=== PATIENT | female | born 1955 | race Caucasian/White ===

== ENCOUNTER 2023-08-17 07:45 | Inpatient (IN) | payer MEDICARE ==
[~2023-08-17] VITALS: Ht 152.4 cm; Wt 84.2 kg
[2023-08-17] VITALS (23 sets, daily range): BP systolic 83–129; BP diastolic 48–91
[2023-08-17 08:28] LABS: BASE EXCESS, BLOOD GAS 2.9 mmol/L (-2-2); HCO3, BLOOD GAS 28.2 mmol/L (22-26); O2 SATURATION, BLOOD GAS 94.4 % (95.0-100.0); PCO2, BLOOD GAS 43.6 mmHg (35-45); PH, BLOOD GAS 7.42 (7.35-7.45); PO2, BLOOD GAS 65 mmHg (80-100); TOTAL CO2, BLOOD GAS 29.6
[2023-08-17 08:29] LABS: OXYGEN RECEIVED, BLOOD GAS RA
[2023-08-17 08:38] LABS: EOSINOPHILS 1.1 % (0-6); HEMATOCRIT 44.9 % (35.0-50.0); LYMPHOCYTES 12.6 % (24-44); MCH 32.6 (27-36); MCHC 33.5 g/dl (30-36); MCV 97.3 fl (81-99); MONOCYTES 9.8 % (0-12); NEUTROPHILS 75.5 % (39-80); PLATELET COUNT 238 K/uL (140-440); RBC 4.61 M/ul (4.3-5.7); RDW 15.7 (10.5-15.0)
[2023-08-17 09:08] LABS: INFLUENZA B NAA NEGATIVE (NEGATIVE); RESPIRATORY SYNCYTIAL VIR NAA NEGATIVE (NEGATIVE)
[2023-08-17 09:25] LABS: ALBUMIN 2.2 g/dL (3.4-5.0); ALBUMIN/GLOBULIN RATIO 0.47 (1.1-2.4); ANION GAP 5.6 (7-21); BILIRUBIN, TOTAL 1.2 ng/dL (0.2-1.0); BUN/CREATININE RATIO 11.86 (6.0-28.6); CREATININE, SERUM 0.59 mg/dL (0.55-1.02); MAGNESIUM 1.7 mg/dL (1.8-2.4); POTASSIUM 3.6 mmol/L (3.5-5.1); PROTEIN, TOTAL 6.9 g/dL (6.4-8.2)
[2023-08-17 12:33] LABS: INR 1.23 (0.80-1.30)
--- NOTE | 2023-08-17 14:15 | NUR ---
THIS RN AND ALEXANDRU RN DOWN TO GET PATIENT FROM ED AND TRANSPORT PATIENT TO ROOM 127.
--- NOTE | 2023-08-17 14:35 | NUR ---
PATIENT IN ROOM 127. PATIENT ABLE TO STAND AND TRANSFER TO BED. PATIENT TOLERATED WELL. NO SKIN ISSUES NOTED. PATIENT HAS BLE WITH RIGHT WORSE THAN LEFT. PATIENT HAS CLEAN ATTENDS ON AND PUREWICK IN PLACE. PATIENT ON 2L NC. PATIENT RR- 24-30. PATIENT STATES "MY HARD BREATHING IS BETTER THAN BEFORE". PATIENT ABD VERY DISTENDED AND TIGHT. PATIENT REPORTS HER IS AT A CARE FACILITY AND HER DAUGHTER ENRICO IS HER DECISION MAKER AT THIS TIME. PATIENT ARRIVED WITH POLST FORM ON CHART. PATIENT HAS CELL PHONE AT THE BEDSIDE. ORIENTED TO ROOM AND CALL LIGHT. PATIENT ON 5MLS/HR CARDIZEM GTT. NO OTHER NEEDS AT THIS TIME.
--- NOTE | 2023-08-17 15:07 | NUR ---
MED REC COMPLETE
--- NOTE | 2023-08-17 16:31 | NUR ---
PATIENT ALERT AND ORIENTED, SITTING UP IN BED. DAUGHTERS IN ROOM AT THIS TIME. PATIENT STATES SHE LIVES IN A HOME, ALONE. RECENTLY HAS PLACED SPOUSE INTO A CARE HOME. PATIENT STATES SHE HAS NO STEPS INTO THE HOME. NO LONGER DRIVES. FRIENDS, FAMILY AND TAXI ARE UTILIZED FOR TRANSPORTATION. STATES SHE HAS NO DME THAT SHE USES, HOWEVER, HAS A NEBULIZER AND WALKER AVAILABLE IF NEEDED. STATES FINANCIALLY SHE IS DOING OK WITH FOOD, MEDICATIONS, UTILITIES, ETC. STATES SHE MAY EVENTUALLY HAVE ISSUES WITH HER SPOUSE BEING IN THE CARE HOME, BUT IS OK FOR NOW. DEMOGRAPHICS VERIFIED WITH PATIENT. HER EMERGENCY CONTACT IS ENRICO [phone]. DENIES ANY NEEDS AT THIS TIME AT HOME. INSTRUCTED TO NOTIFY STAFF IF NEEDS ARISE. VERBALIZES UNDERSTANDING.
--- NOTE | 2023-08-17 17:00 | NUR ---
PATIENT HAS HAD A BEDSIDE LOWER LEG ULTRASOUND AND ECHO COMPLETED SINCE ARRIVAL. PATIENT NOW EATING DINNER. PATIENT WILL HAVE AN MRI TOMORROW. PATIENTS DAUGHTERS IN TO SEE PATIENT. UPDATED ON PLAN OF CARE. NO OTHER ISSUES AT THIS TIME. PLAN OF CARE REVIEWED WITH PATIENT AND FAMILY BY .
--- NOTE | 2023-08-17 18:07 | NUR ---
THIS RN IN TO CHECK ON PATIENT. PATIENT REPORTS INCREASED ABD PAIN AFTER DINENR AND INCREASED SOB SIMILAR TO LAST NIGHT AFTER EATING. PATIENT REPORT SHE STATES "I HAVE BEEN USING A INHALER AT HOME, CAN I HAVE SOMETHING HERE?". NOTIFED MD AND NEW ORDERS PLACED. RT IN TO ASSESS PATIENT. NO OTHER NEEDS AT THIS TIME.
--- NOTE | 2023-08-17 18:52 | NUR ---
PATIENT REPORTING PAIN 4/10 WITH CHRONIC BACK PAIN. PATIENT REQUESTED TYLENOL FOR PAIN. CALLED MD MERCADO. SEE NEW ORDERES FOR TYLENOL. PATIENT REPORTS SOB IS BETTER THIS EVENING AFTER FOOD HAS PASSES THROUGH AND NEB TREATMENT.
--- NOTE | 2023-08-17 20:00 | NUR ---
SHIFT REPORT RECEIVED FROM MIREILLE AGUIAR. ASSESSMENT COMPLETED. VSS. POC DISCUSSSED AND QUESTIONS ANSWERED. O2 VIA NC AT 2L. CARDIZEM DRIP AT 5ML/HR. BOTH IV SITES INTACT AND PATENT. PUREWICK CHANGED. PT HAS BELONGINGS AND CALL LIGHT WITHIN REACH.
--- NOTE | 2023-08-17 21:03 | NUR ---
IN TO GIVE SCHEDULED MEDICATION. PT REMAINS ON 2L O2 VIA NC. CARDIZEM DRIP UNCHANGED. PT DENIES REQUESTS/COMPLAINTS. CALL LIGHT AND BELONGINGS WITHIN REACH.
--- NOTE | 2023-08-17 22:20 | NUR ---
PT REPORTING INCREASED ABDOMINAL AND BACK PAIN. DR. MERCADO CALLED, TORB FOR ONE TIME DOSE OF 30MG IV TORADOL, GIVEN AT THIS TIME. FRESH ICE WATER PROVIDED. PT DENIES FURTHER NEEDS, CALL LIGHT AND BELONGINGS WITHIN REACH.
--- NOTE | 2023-08-17 23:05 | NUR ---
PT HAS HAD 2 BP'S NOW WITH SYSTOLIC <100, CUFF REPOSITIONED. CARDIZEM DRIP TITRATED TO 2.5MG/HR. PT REPORTS IMPORVED PAIN SINCE PRN TORADOL.
--- NOTE | 2023-08-17 23:15 | NUR ---
CARDIZEM DRIP STOPPED FOR BP: 83/62(70).
--- NOTE | 2023-08-17 23:58 | NUR ---
REPORT FROM CRISTOPHER JUDGE RN AT THIS TIME FOR TRANSFER OF CARE TO THIS RN
[2023-08-18] VITALS (26 sets, daily range): BP systolic 86–140; BP diastolic 47–78
--- NOTE | 2023-08-18 00:11 | NUR ---
ROUNDING ON PATIENT, IV PUMP ALARMING INFUSION COMPLETE. PT ALERT TO RN AT BEDSIDE, SHE HAS NO COMPLAINT OF SHORTNESS OF BREATH, NAUSEA, OR PAIN AT THIS TIME, SHE DID ASK FOR ANOTHER PILLOW TO BE PLACED BEHIND HER BACK. SHE IS ORIENTED, EXPLAINED THIS RN IS TAKING OVER CARE FOR CRISTOPHER RN AT THIS TIME. PILLOW PROVIDED, NO FURTHER REQUESTS AT THIS TIME, CALL LIGHT IN REACH, ASSESSMENT COMPLETE.
--- NOTE | 2023-08-18 01:00 | NUR ---
ROUNDING, PT REPORTS PAIN 6/10 AND NEEDS SOMETHING FOR RELIEF, NOTHING CURRENTLY AVAILABLE PER ORDERS, CALLED TO REQUEST PAIN MEDICATION, GIVEN UPDATES..CIWA NEGATIVE, DILT GGT OFF AT 2315, VITALS STABLE AT THIS TIME, SAID TO GIVEN THE TYLENOL FOR PAIN, AND TO ADD ATIVAN PRN FOR ANXIETY WELL.
--- NOTE | 2023-08-18 01:17 | NUR ---
ATIVAN AND TYLENOL PRN ADMINISTERED. PT GIVEN PUDDING SNACK AT HER REQUEST. NO OTHER REQUESTS AT THIS TIME.
--- NOTE | 2023-08-18 02:07 | NUR ---
ROUNDING ON PATIENT, ASSISTED IN REPOSITIONING HER UP IN BED, NOTED WHEEZES AND PATIENT IS MORE SHORT OF BREATH, RESPIRATORY THERAPY CALLED FOR PRN BREATHING TREATMENT, TALKED WITH CHARITY Smith
--- NOTE | 2023-08-18 03:47 | NUR ---
BLADDER SCANNED PATIENT FOR GREATER THAN 631ML, CALLED NEW ORDER FOR BAER CATHETER.
--- NOTE | 2023-08-18 04:00 | NUR ---
BAER CATHETER PLACED PER ORDERS, STERILE FIELD MAINTAINED THROUGHOUT, PATIENT TOLERATED WELL, 9ML STERILE WATER PLACED TO BAER BALLOON, PATIENT TOLERATED WELL, 500ML OUT AND STILL DRAINING, PATIENT REPOSITIONED FOR COMFORT. NEW DRAW SHEET PLACED. NO OTHER REQUESTS AT THIS TIME
--- NOTE | 2023-08-18 05:15 | NUR ---
LAB IN FOR AM DRAW, BAER CATHETER ASSESSED AND EMPTIED, PT ALERT AND ORIENTED THIS AM, NO REPORT OF NAUSEA OR PAIN AT THIS TIME. V/S STABLE. CALL LIGHT IN REACH.
[2023-08-18 05:35] LABS: BASOPHILS 0.9 % (0-2); EOSINOPHILS 1.1 % (0-6); HEMATOCRIT 39.4 % (35.0-50.0); LYMPHOCYTES 12.1 % (24-44); MCH 32.2 (27-36); MCHC 32.9 g/dl (30-36); MCV 97.8 fl (81-99); MONOCYTES 9.7 % (0-12); NEUTROPHILS 76.2 % (39-80); PLATELET COUNT 174 K/uL (140-440); RBC 4.03 M/ul (4.3-5.7); RDW 15.4 (10.5-15.0)
[2023-08-18 05:45] LABS: ANION GAP 8.1 (7-21); BUN/CREATININE RATIO 11.66 (6.0-28.6); CALCIUM 8.3 mg/dL (8.5-10.1); CREATININE, SERUM 0.6 mg/dL (0.55-1.02); POTASSIUM 3.1 mmol/L (3.5-5.1)
--- NOTE | 2023-08-18 09:48 | NUR ---
PT CONSENTED TO PRAYER. PRAYED FOR STRENGTH OF BODY AND SOUL AND AWARENESS OF DIVINE PRESENCE. LEFT GUIDEPOST WITH PRAYER CARD AND CONTACT CARD.
--- NOTE | 2023-08-18 10:00 | NUR ---
PATIENT HOPPER TAKEN TO MRI VIA WHEELCHAIR ON 2L NC. ENDORSES SOME ANXIETY RELATED TO CLAUSTROPHOPBIA. PRN ATIVAN ADMINISTERED. OTHERWISE PATIENT STATES COMFORTABLE AND IS LOOKING FORWARD TO A POSSIBLE PARACENTESIS LATER ON IN THE DAY.
--- NOTE | 2023-08-18 10:13 | NUR ---
RECOVERY ASSISTANT IN TO TAKE PT FOR SCAN. REMOVED NICOTINE PATCH TO LEFT UPPER ARM FOR MRI, ALL MONITORS WITH METAL SNAPS REMOVED. PT TRANSFERED SELF TO WHEELCHAIR WITH NO DIFFICULTY.
--- NOTE | 2023-08-18 10:56 | NUR ---
RECEIVED SBAR REPORT FROM MIREILLE THORNTON. ALL QUESTIONS AND CONCERNS WERE ADDRESSED. PATIENT HOPPER DENIES ANY CURRENT NEEDS. AM CARE PROVIDED INCLUDING ORAL CARE, CATHETER CARE, AND CHANGE OF LINENS.
--- NOTE | 2023-08-18 12:00 | NUR ---
MD DUGAN AT BEDSIDE. CONSENT AND WITNESS FOR PARACENTESIS SIGNED. 1300- PARACENTESIS PERFORMED WITH MINIMAL DISCOMFORT. 5L EXTRACTED AND SENT OFF FOR LABS. PATIENT HOPPER IS EAGER TO GO HOME. THIS RN WILL FOLLOW UP WITH MD MERCADO FOR POSSIBLE DC ORDERS
[2023-08-18 13:05] LABS: HEPATITIS A ANTIBODY, IGM Negative (Negative); HEPATITIS B CORE ANTIBODY, IGM Negative (Negative); HEPATITIS B SURFACE ANTIGEN Negative (Negative); HEPATITIS C AB CIA INTERP Negative (Negative); HEPATITIS C ANTIBODY CIA INDEX 0.04 IV (())
--- NOTE | 2023-08-18 14:43 | NUR ---
MD MERCADO AT BEDSIDE. RECEIVED DISCHARGE ORDERS. PATIENT HOPPER IS ENDORSING COMFORT. AM MEDS THAT WERE UNABLE TO BE GIVEN DUE TO NPO STATUS AND MRI GIVEN. INDWELLING BAER CATHETER REMOVED.
[2023-08-18] MEDS ORDERED: HYDRALAZINE HCL25 MG PO (14:59)
[2023-08-18] MEDS ORDERED: AMOXICILLIN875 MG PO (15:01)
[2023-08-18] MEDS ORDERED: VENTOLIN HFA18 GM INH (15:05)
--- NOTE | 2023-08-18 15:17 | CONS ---
[facility] [address], [place] [address] Signed DATE OF CONSULTATION: 08/18/2023 REQUESTING PHYSICIAN: Maryam Hobson MD. PROBLEM: Symptomatic ascites. HISTORY OF PRESENT ILLNESS: This 68-year-old woman lives in [place], [place] and recently her transferred to an extended care facility for his debilities. The patient has a long-standing history of alcohol ingestion and in the past three weeks has noted increasing abdominal girth. She presented to the emergency room complaining of shortness of breath. The patient was unable to sleep, which prompted a visit to the emergency room where she was evaluated by Dr. Acevedo and ultimately Dr. Hobson and admitted to the hospital with symptomatic ascites. The patient does drink a six pack of beer daily and does smoke one pack of cigarettes daily as well. She is not known to have had prior history of liver disease. The patient was evaluated with an ultrasound confirming a nodular liver consistent with cirrhosis as well as intra-abdominal ascites. She was noted to have hepatopetal flow (normal portal flow). A CT scan was additionally performed of the chest and notably an abdominal MRI also performed. MRI confirmed multiple hepatic cysts, all of them considered benign and no suspicious hepatic mass. A chest CT that was performed showed no evidence of pulmonary embolism as her D-dimer had been elevated and some possibility of pulmonary arterial hypertension due to a dilated pulmonary trunk. Solitary pulmonary nodules in the right upper lobe and left upper lobe measuring 0.6 cm were noted considered worthy of additional followup in the future. Request has been made by Dr. Hobson for paracentesis on the basis of her symptomatic ascites. PAST MEDICAL HISTORY: Notable for x2 through a long midline incision. She denies other intra-abdominal interventions. SOCIAL HISTORY: She is . Her now in a residential and has two daughters, one of whom lives close by to her. REVIEW OF SYSTEMS: She denies any chest pain, but does have some dyspnea and shortness of breath related to her ascites. Denies lower extremity pain or abdominal pain per se. Electronically Signed By: SAUL DUGAN MD 08/18/23 1517 PATIENT NAME: REMINGTON LU CONSULTATION DATE OF : 55 REPORT #: [id number] PHYSICIAN: SAUL DUGAN MD PCP: MOLLY MONTGOMERY MD REPORT IS CONFIDENTIAL AND NOT TO BE RELEASED WITHOUT AUTHORIZATION [facility] [address], [place] [address] Signed PHYSICAL EXAMINATION: GENERAL: This is a pleasant white woman who looks far older than her stated age of 68. NECK: Trachea is midline. CHEST: Clear. HEART: Regular. Heart rate is a bit over 100. ABDOMEN: Abdomen is markedly distended. There is no focal tenderness or mass. I see no evidence of caput medusae or other secondary signs of portal hypertension. EXTREMITIES: Show no clubbing, cyanosis, or edema. LABORATORY STUDIES: Show white count of 4.9, hematocrit 39.4, platelets 174,000. Coag studies show an INR of 1.23. D-dimer is elevated at 6.78. Chem profile showed a potassium at presentation of 3.6, now 3.1, creatinine is 0.6, bilirubin at presentation elevated at 1.2, alkaline phosphatase 168, AST 57. BNP 1135 (normal to 125). Albumin low at 2.2. Imaging studies were reviewed in particular abdominal MRI, which shows ascites type fluid, particularly throughout the abdomen including the right side. ASSESSMENT: The patient has symptomatic ascites related to this cirrhotic liver. She does have preservation of direction of portal blood flow. She is symptomatic as regards the ascites including shortness of breath and so on. I have discussed the case with Dr. Hboson who would prefer she undergo paracentesis. Initiation of diuretic therapy would be anticipated of course. Special risks of bleeding, infection, recurrent ascites (probable) pending control of her ascites from a diuretic standpoint were all reviewed in detail. She understands and wished to proceed. MD NATY Gutierrez/JONATHON /[id number] cc: Maryam Hobson MD Electronically Signed By: SAUL DUGAN MD 08/18/23 1517 PATIENT NAME: REMINGTON LU CONSULTATION DATE OF : 55 REPORT #: [id number] PHYSICIAN: SAUL DUGAN MD PCP: MOLLY MONTGOMERY MD REPORT IS CONFIDENTIAL AND NOT TO BE RELEASED WITHOUT AUTHORIZATION [facility] [address] [facility] [place] [address] Signed Copies: ~ Electronically Signed By: SAUL DUGAN MD 08/18/23 1517 PATIENT NAME: REMINGTON LU CONSULTATION DATE OF : 55 REPORT #: [id number] PHYSICIAN: SAUL DUGAN MD PCP: MOLLY MONTGOMERY MD REPORT IS CONFIDENTIAL AND NOT TO BE RELEASED WITHOUT AUTHORIZATION
--- NOTE | 2023-08-18 15:17 | OR ---
[facility] [address], [place] [address] Signed DATE OF OPERATION: 08/18/2023 SURGEON: Saul Dugan MD PREOPERATIVE DIAGNOSES: Symptomatic ascites; cirrhosis and alcoholism. POSTOPERATIVE DIAGNOSES: Symptomatic ascites; cirrhosis and alcoholism. PROCEDURE: Ultrasound-guided paracentesis (5 L). ANESTHESIA: 1% lidocaine with epinephrine. INDICATION: This 68-year-old white woman is admitted to the hospital yesterday by Dr. Hobson, presented to the emergency room with abdominal distention and new onset of ascites. She does have underlying alcoholism. She has a normal platelet count and an INR reasonably normal. She is very symptomatic as far as dyspnea and so forth with her ascites. Examination shows a tense considerable amount of abdominal ascites and paracentesis is offered. She understands the risk of bleeding, infection, recurrent ascites, need for additional interventions, likely to include diuretics and so forth and wished to proceed. FINDINGS: The ultrasound defined the most appropriate window for paracentesis to be the left upper quadrant in distinction to an ultrasound she previously had last night. Drainage of 5 L of clear yellow ascites fluid was noted. There is no sign of blood or any indication of complication. DESCRIPTION OF PROCEDURE: The patient was in the supine position. Abdominal examination with a [employer] ultrasound device was undertaken on both right and left side. There appeared to be the most optimal window of the left upper quadrant. This area was prepared with a chlorhexidine solution and draped sterilely and 1% lidocaine with epinephrine was injected locally in the area in question. Under direct visualization, the peritoneal cavity was entered and aspiration showed clear ascites fluid. The catheter that had been placed after a small incision with 11 blade was left in place without the Electronically Signed By: SAUL DUGAN MD 08/18/23 1517 PATIENT NAME: REMINGTON LU OPERATIVE REPORT DATE OF : 55 REPORT #: [id number] PHYSICIAN: SAUL DUGAN MD PCP: MOLLY MONTGOMERY MD REPORT IS CONFIDENTIAL AND NOT TO BE RELEASED WITHOUT AUTHORIZATION [facility] [address] [place] [address] Signed needle. A three-way stopcock device with tubing and so forth was attached and ultimately large Vacutainer bottle was used to aspirate the ascites. 5 L in total were removed. At that point, despite abdominal wall manipulation and so forth a little ascites was further obtained and on that basis, no further ascites was withdrawn. A syringe of fluid was placed in a sterile cup and passed for studies as ordered by Dr. Hobson. A Band-Aid was applied. She tolerated the procedure well and is feeling much better. The abdomen was scaphoid by completion of the procedure. MD NATY Gutierrez/JONATHON /[id number] cc: MD Maryam Jewell MD Copies: MOLLY MONTGOMERY MD ~ Electronically Signed By: SAUL DUGAN MD 08/18/23 1517 PATIENT NAME: REMINGTON LU OPERATIVE REPORT DATE OF : 55 REPORT #: [id number] PHYSICIAN: SAUL DUGAN MD PCP: MOLLY MONTGOMERY MD REPORT IS CONFIDENTIAL AND NOT TO BE RELEASED WITHOUT AUTHORIZATION
--- NOTE | 2023-08-18 15:34 | NUR ---
POLST completed by Dr. Hobson and patient. POLST completed and faxed to registry and copy placed on chart. Patient instructed to put POLST on fridge at home.
--- NOTE | 2023-08-18 16:01 | NUR ---
PATIENT HOPNATALI DISCHARGED HOME VIA PRIVATE CAR. PATIENT'S DAUGHTER ENRICO TO DRIVE HOME. LDA'S DISCONTINUED INCLUDING 2 IV LINES AND INDWELLING BAER CATHETER. SHE DENIES ANY DISCOMFORT OR PAIN. EDUCATION PAMPHLETSREGARDING PARACENTESIS, ATRIAL FIBRILLATION, AND ASCITES PROVIDED, FOLLOW UP APPT MADE, AND MEDICATION INSTRUCTIONS PROVIDED PER PHARMACY. INFLUEZA VACCINATION ON RIGHT DELTOID. VSS AND WDL PER MONITOR NEURO- ALERT AND ORIENTED X 4, DENIES PAIN OR DISCOMFORT, ABLE TO MOVE ALL EXTREMITIES WITH MINIMAL LIMITATIONS, PERRL RESP- RA O2 > 92%. BREATH SOUNDS DIMINISHED WITH INTERMITTENT EXPIRATORY WHEEZES APPRECIATED. ABLE TO COUGH AND DEEP BREATH. ABLE TO CLEAR AIRWAY. CARDIAC- ATRIAL FIBRILLATION WITH CONTROLLED RATE. RLE +1 EDEMA, AFEBRILE GI/- ABDOMEN FIRM AND NON-TENDER. PARACENTESIS PERFORMED, 5L EXPRESSED INDWELLING BAER CATHETER REMOVED. ABLE TO VOID INT- LUE BRUISE AT IV SITE
--- NOTE | 2023-08-18 16:54 | EKG ---
[facility] [address] [facility] [place], [place] [address] Signed Atrial fibrillation with rapid ventricular response Low voltage QRS Nonspecific T wave abnormality Abnormal ECG No previous ECGs available Confirmed by AMANDA MERCADO MD ([id number]) on 08/18/2023 4:54:09 PM Electronically Signed By: AMANDA MERCADO 08/18/23 1654 PATIENT NAME: REMINGTON LU Electrocardiogram DATE OF : 55 PHYSICIAN: AMANDA MERCADO REPORT #: [id number] REPORT IS CONFIDENTIAL AND NOT TO BE RELEASED WITHOUT AUTHORIZATION
[2023-08-20 09:28] LABS: AMYLASE FLUID SOURCE Abdomen (()); AMYLASE, BODY FLUID 5 U/L (()); LACTATE DEHYDROGENASE TOTAL,BF 43 U/L (()); LDH FLUID SOURCE Abdomen (()); TOTAL PROTEIN FLUID SOURCE Abdomen (()); TOTAL PROTEIN, BODY FLUID 2.4 g/dL (())
== END 2023-08-18 15:53 | disposition home or self-care (01) | DRG 433 ==
LOC: ED 07:45 → CCU 12:55
PROVIDERS: Emergency Medicine; Surgery; ADMIT Internal Medicine; ATTEND Internal Medicine
PROC: 4A033R1 Measurement of Arterial Saturation, Peripheral, Percutaneous Approach (ICD-10-PCS; 2023-08-17)
PROC: 0W9G3ZZ Drainage of Peritoneal Cavity, Percutaneous Approach (ICD-10-PCS; principal; 2023-08-18)
DX: K70.31 Alcoholic cirrhosis of liver with ascites (principal); I50.30 Unspecified diastolic (congestive) heart failure; Z66 Do not resuscitate; K76.89 Other specified diseases of liver; R79.1 Abnormal coagulation profile; I48.91 Unspecified atrial fibrillation; R56.9 Unspecified convulsions; F17.210 Nicotine dependence, cigarettes, uncomplicated; F10.20 Alcohol dependence, uncomplicated; Z11.52 Encounter for screening for COVID-19; Z90.49 Acquired absence of other specified parts of digestive tract; Z90.710 Acquired absence of both cervix and uterus
CPT/HCPCS: 36415; 36600; 71045; 71260; 74183; 76700; 76705; 80048; 80053; 80074; 82150; 82803; 83735; 83880; 83986; 84157; 84484; 85025; 85379; 85610; 87502; 93005; 93010; 93306; 93970; 94640; 99285-25; 99406; A9270; A9577; C9803; J0696; J1885; J1940; J2060; J3475; J3490; Q9967; U0002